=== PATIENT | male | born 1935 | race Caucasian/White ===

== ENCOUNTER → 2017-08-30 09:58 | Outpatient (CLI) | payer MEDICARE ==
[2016-05-23 11:58] VITALS: BMI 28.9
[~2017-08-30 09:58] MED LIST: FLOMAX0.4 MG PO; FLUTICASONE PRO16 GM NASAL; LEVOXYL100 MCG PO; NITROSTAT0.4 MG SL; PLAVIX75 MG PO; PROSCAR5 MG PO; SYMBICORT 16010.2 GM INH; VENTOLIN HFA18 GM INH
[2017-08-30 10:38] LABS: EOSINOPHILS 5.8 % (0-7); HEMATOCRIT 35.3 % (42.0-54.0); HEMOGLOBIN 11.5 g/dL (13.5-17.5); IMMATURE GRANULOCYTES 0.2 % (0-5); LYMPHOCYTES 29.5 % (15-50); MCH 27.8 pg (26.0-34.0); MCHC 32.6 g/dL (31.0-37.0); MCV 85.3 fL (80.0-100.0); MEAN PLATELET VOLUME 9.3 fL (7.4-10.4); NEUTROPHILS 54.5 % (40-80); PLATELET COUNT 292 10x3/uL (130-400); RBC 4.14 10x6/uL (4.20-6.10); RDW 12.3 % (11.5-14.5)
[2017-08-30 10:58] LABS: ALBUMIN 3.7 g/dL (3.4-5.0); ALKALINE PHOSPHATASE 78 U/L (46-116); ALT (SGPT) 20 U/L (10-68); BILIRUBIN - DIRECT 0.09 mg/dL (0.00-0.30); BILIRUBIN - INDIRECT 0.31 mg/dL (0.00-1.00); CALC OSMOLALITY 276 mosm/kg (275-300); CALCIUM 8.8 mg/dL (8.5-10.1); CARBON DIOXIDE 27.6 mmol/L (21.0-32.0); CHLORIDE - SERUM 103 mmol/L (98-107); GLUCOSE 104 mg/dL (74-106); PROTEIN - SERUM 7.2 g/dL (6.4-8.2); SODIUM 139 mmol/L (136-145); UREA NITROGEN 9 mg/dL (7-18); eGFR NON AFRICAN AMERICAN 76 mL/min (90-120)
[2017-08-30 11:03] LABS: INR 0.98 (0.85-1.17); PROTIME 12.6 SECONDS (11.6-15.0)
== END | disposition home or self-care (01) ==
LOC: D.LAB 09:58 → D.CT 11:00
PROVIDERS: Surgery
DX: C18.9 Malignant neoplasm of colon, unspecified (principal); I20.8 Other forms of angina pectoris

== ENCOUNTER 2017-09-11 08:00 | Inpatient (IN) | payer MEDICARE ==
[2017-09-11] VITALS (12 sets, daily range): BP systolic 116–181; BP diastolic 47–81; BMI 28.0; BMI 27.8
[~2017-09-11] VITALS: Ht 177.8 cm; Wt 88.0 kg
--- NOTE | ~2017-09-11 | OP ---
PATIENT NAME: CRISELDA BECERRA MEDICAL RECORD: [id number] :34 LOCATION:D[id number] ADMISSION DATE:09/11/17 SURGEON: LIZZIE MATUTE MD DATE OF OPERATION: 09/11/2017 SURGEON: Lizzie Matute MD PREOPERATIVE DIAGNOSES: 1. Colon cancer. 2. Chronic obstructive pulmonary disease. 3. Typical angina. POSTOPERATIVE DIAGNOSES: 1. Colon cancer. 2. Chronic obstructive pulmonary disease. 3. Typical angina. PROCEDURE PERFORMED: 1. Laparoscopic mobilization of splenic flexure. 2. Laparoscopic extended left hemicolectomy. ANESTHESIA: General. COMPLICATIONS: None. SPECIMENS: Left colon. Case was contaminated. ESTIMATED BLOOD LOSS: 200 cc. OPERATIVE COURSE: After consent was obtained, the patient was taken to the operating room and placed in the supine position on the operating table. Next, general anesthesia was given via endotracheal intubation after a timeout was taken to confirm the correct patient and procedure. Abdomen was prepped and draped in typical sterile fashion. Local anesthetic was injected just above the umbilicus. A stab incision was made with 11-blade scalpel. Using a 5-mm bladeless optical trocar, the abdomen was entered under direct laparoscopic vision. Adequate pneumoperitoneum was achieved. The abdominal cavity was inspected. No evidence of bowel injury. No evidence of bleeding. At this time, all remaining trocars were placed, a 5-mm trocar in the left lower quadrant, two 5-mm trocar into the right lateral quadrant. The abdominal cavity was inspected. The colon was inspected. The area of tattooing was identified in the left upper quadrant at the distal transverse colon, at the splenic flexure. At this time, I decided to extended left hemicolectomy. The 5-mm midline port was removed. The skin incision was made. The skin incised with 15 blade scalpel. Dissection to the level of the fascia using electrocautery. The fascia was opened with electrocautery. Peritoneum was opened using electrocautery. The Nathaniel retractor was placed. The Gelport was placed. Pneumoperitoneum was re-achieved. At this time, the descending colon was mobilized off the pelvic side wall. The white line of Toldt was taken using the Harmonic scalpel. The splenic flexure was mobilized using the Harmonic scalpel. Next, the mid transverse colon was identified. The omentum was dissected off the transverse colon and retracted cephalad. The lesser sac was entered. The remaining portion of the splenic flexure was then mobilized from medial to OPERATIVE REPORT [id number] CRISELDA BECERRA O lateral until the splenic flexure was completely mobilized. The left branch of the middle colic vessels was identified. It was dissected using the Harmonic scalpel. The left branch of the middle colic vessels were then divided using the linear cutting GI stapler with a white load stapler. The mesentery was taken using the Harmonic scalpel. There was significant disease within the gastrocolic ligament. To get full circumferential dissection of the colon the stapler was fired across the greater curvature of the stomach using a ELIZABETH stapler. At this time, the Nathaniel retractor was removed. The colon was extracorporealized. The remaining portion of the mesentery was taken with Harmonic scalpel. The descending colon was transected using ELIZABETH stapler. At this time, the specimen was passed off the field and sent for permanent pathology. A dasl-ut-uiqb colocolonic anastomosis was created using the ELIZABETH stapler. The staple line was imbricated using 3-0 Vicryl suture. The abdomen was copiously irrigated and suctioned. The small bowel was run from the ligament of Treitz to the cecum. No evidence of small bowel injury. An NG tube was placed and it was palpated for positioning. A VICKY drain was placed into the abdomen and placed along the left pericolic gutter and splenic flexure. Secured the skin using 2-0 nylon suture. The abdominal cavity was copiously irrigated and suctioned. Nathaniel retractor was removed. The fascia was closed with 0 looped PDS. Skin was closed with nithin. At the end of the case, all needle and instrument counts were correct. No complications occurred. The patient extubated and transferred to the PACU in stable condition. TRANSINT:[id number] Voice Confirmation ID: [id number] DOCUMENT ID: [id number] LIZZIE MATUTE MD at 0910 CC: [id number] DICTATION DATE: 09/11/17 1621 ROLL MACHINE OPERATOR: 09/11/172219 ADM IN [id number] [place] [address]
[~2017-09-11 08:00] MED LIST changes: +PROTONIX40 MG PO
[2017-09-11 08:54] LABS: BASOPHILS 1.1 % (0-2); EOSINOPHILS 3.7 % (0-7); HEMATOCRIT 36.3 % (42.0-54.0); HEMOGLOBIN 11.8 g/dL (13.5-17.5); IMMATURE GRANULOCYTES 0.2 % (0-5); LYMPHOCYTES 18.7 % (15-50); MCH 27.4 pg (26.0-34.0); MCHC 32.5 g/dL (31.0-37.0); MCV 84.2 fL (80.0-100.0); MEAN PLATELET VOLUME 9.2 fL (7.4-10.4); MONOCYTES 12.2 % (2-11); NEUTROPHILS 64.1 % (40-80); PLATELET COUNT 299 10x3/uL (130-400); RBC 4.31 10x6/uL (4.20-6.10); RDW 12.3 % (11.5-14.5); WBC 5.4 10x3/uL (4.8-10.8)
[2017-09-11 09:04] LABS: APTT 30.3 SECONDS (22.8-39.4); INR 0.97 (0.85-1.17); PROTIME 12.5 SECONDS (11.6-15.0)
[2017-09-11 09:16] LABS: CALC OSMOLALITY 274 mosm/kg (275-300); CARBON DIOXIDE 25.7 mmol/L (21.0-32.0); CHLORIDE - SERUM 102 mmol/L (98-107); CREATININE - SERUM 0.9 mg/dL (0.6-1.3); GLUCOSE 108 mg/dL (74-106); POTASSIUM - SERUM 4.2 mmol/L (3.5-5.1); SODIUM 138 mmol/L (136-145); UREA NITROGEN 7 mg/dL (7-18); eGFR NON AFRICAN AMERICAN 86 mL/min (90-120)
[2017-09-12 04:00] VITALS: BP 134/57
[2017-09-12 05:19] LABS: BASOPHILS 0.1 % (0-2); EOSINOPHILS 0 % (0-7); IMMATURE GRANULOCYTES 0.3 % (0-5); LYMPHOCYTES 4.9 % (15-50); MCH 27.1 pg (26.0-34.0); MCHC 31.9 g/dL (31.0-37.0); MCV 84.8 fL (80.0-100.0); MEAN PLATELET VOLUME 9.2 fL (7.4-10.4); MONOCYTES 10.3 % (2-11); NEUTROPHILS 84.4 % (40-80); PLATELET COUNT 284 10x3/uL (130-400); RDW 12.7 % (11.5-14.5)
[2017-09-12 05:44] LABS: HEMATOCRIT 28.5 % (42.0-54.0); HEMOGLOBIN 9.1 g/dL (13.5-17.5); RBC 3.36 10x6/uL (4.20-6.10); WBC 13.9 10x3/uL (4.8-10.8)
[2017-09-12 05:51] LABS: ALBUMIN 2.5 g/dL (3.4-5.0); ANION GAP 13.6 mmol/L (8-16); BILIRUBIN - TOTAL 0.4 mg/dL (0.2-1.3); CALCIUM 7.7 mg/dL (8.5-10.1); CARBON DIOXIDE 23.4 mmol/L (21.0-32.0); CREATININE - SERUM 1.1 mg/dL (0.6-1.3); PROTEIN - SERUM 5.3 g/dL (6.4-8.2)
[2017-09-12 08:56] VITALS: BP 119/49
[2017-09-12 10:58] VITALS: Ht 177.8 cm; Wt 88.0 kg
[2017-09-12 12:46] VITALS: BP 132/52
[2017-09-12 16:12] VITALS: BP 122/49
[2017-09-13 02:05] VITALS: BP 133/56
[2017-09-13 04:00] VITALS: BP 135/63
[2017-09-13 08:28] VITALS: BP 143/61
[2017-09-13 08:33] LABS: BASOPHILS 0.2 % (0-2); EOSINOPHILS 0.3 % (0-7); HEMATOCRIT 25.4 % (42.0-54.0); HEMOGLOBIN 8.1 g/dL (13.5-17.5); IMMATURE GRANULOCYTES 0.1 % (0-5); LYMPHOCYTES 9.2 % (15-50); MCH 27.2 pg (26.0-34.0); MCHC 31.9 g/dL (31.0-37.0); MCV 85.2 fL (80.0-100.0); MEAN PLATELET VOLUME 9.2 fL (7.4-10.4); MONOCYTES 9.6 % (2-11); NEUTROPHILS 80.6 % (40-80); PLATELET COUNT 219 10x3/uL (130-400); RBC 2.98 10x6/uL (4.20-6.10)
[2017-09-13 08:39] LABS: CALC OSMOLALITY 272 mosm/kg (275-300); CALCIUM 8.2 mg/dL (8.5-10.1); CARBON DIOXIDE 24.2 mmol/L (21.0-32.0); CHLORIDE - SERUM 106 mmol/L (98-107); GLUCOSE 102 mg/dL (74-106); POTASSIUM - SERUM 3.9 mmol/L (3.5-5.1); SODIUM 137 mmol/L (136-145); UREA NITROGEN 10 mg/dL (7-18)
[2017-09-13 08:41] LABS: CREATININE - SERUM 0.8 mg/dL (0.6-1.3); eGFR NON AFRICAN AMERICAN > 90 mL/min (90-120)
[2017-09-13 12:39] VITALS: BP 154/66
[2017-09-13 15:49] VITALS: BP 149/64
[2017-09-13 20:00] VITALS: BP 136/76
[2017-09-14 04:00] VITALS: BP 155/68
[2017-09-14 04:46] LABS: BASOPHILS 0.4 % (0-2); EOSINOPHILS 2.1 % (0-7); HEMATOCRIT 25.9 % (42.0-54.0); HEMOGLOBIN 8.3 g/dL (13.5-17.5); IMMATURE GRANULOCYTES 0.4 % (0-5); LYMPHOCYTES 9.4 % (15-50); MCH 27.1 pg (26.0-34.0); MCV 84.6 fL (80.0-100.0); MEAN PLATELET VOLUME 9.4 fL (7.4-10.4); MONOCYTES 9.2 % (2-11); NEUTROPHILS 78.5 % (40-80); PLATELET COUNT 236 10x3/uL (130-400); RBC 3.06 10x6/uL (4.20-6.10); WBC 8.2 10x3/uL (4.8-10.8)
[2017-09-14 05:05] LABS: CALC OSMOLALITY 273 mosm/kg (275-300); CALCIUM 7.9 mg/dL (8.5-10.1); CARBON DIOXIDE 23.5 mmol/L (21.0-32.0); CHLORIDE - SERUM 106 mmol/L (98-107); CREATININE - SERUM 0.8 mg/dL (0.6-1.3); GLUCOSE 85 mg/dL (74-106); POTASSIUM - SERUM 3.7 mmol/L (3.5-5.1); SODIUM 138 mmol/L (136-145); UREA NITROGEN 9 mg/dL (7-18); eGFR NON AFRICAN AMERICAN > 90 mL/min (90-120)
[2017-09-14 08:12] VITALS: BP 157/67
[2017-09-14 12:24] VITALS: BP 157/71
[2017-09-14 15:57] VITALS: BP 143/75
[2017-09-14 20:00] VITALS: BP 153/76
[2017-09-15] VITALS: BP 149/78
[2017-09-15 04:00] VITALS: BP 148/76
[2017-09-15 05:00] LABS: BASOPHILS 0.2 % (0-2); EOSINOPHILS 2.1 % (0-7); HEMATOCRIT 27.4 % (42.0-54.0); HEMOGLOBIN 8.7 g/dL (13.5-17.5); IMMATURE GRANULOCYTES 0.2 % (0-5); MCH 26.7 pg (26.0-34.0); MCHC 31.8 g/dL (31.0-37.0); MEAN PLATELET VOLUME 9.1 fL (7.4-10.4); NEUTROPHILS 75.5 % (40-80); PLATELET COUNT 264 10x3/uL (130-400); RBC 3.26 10x6/uL (4.20-6.10); RDW 12.8 % (11.5-14.5); WBC 8.1 10x3/uL (4.8-10.8)
[2017-09-15 05:20] LABS: CALC OSMOLALITY 281 mosm/kg (275-300); CALCIUM 7.9 mg/dL (8.5-10.1); CARBON DIOXIDE 22.2 mmol/L (21.0-32.0); CHLORIDE - SERUM 107 mmol/L (98-107); CREATININE - SERUM 0.8 mg/dL (0.6-1.3); GLUCOSE 95 mg/dL (74-106); MAGNESIUM - SERUM 1.8 mg/dL (1.8-2.4); POTASSIUM - SERUM 3.6 mmol/L (3.5-5.1); SODIUM 142 mmol/L (136-145); UREA NITROGEN 11 mg/dL (7-18); eGFR NON AFRICAN AMERICAN > 90 mL/min (90-120)
[2017-09-15 09:33] VITALS: BP 148/79
[2017-09-15 13:28] VITALS: BP 163/81
[2017-09-15 18:40] VITALS: BP 149/77
[2017-09-15 20:00] VITALS: BP 170/83
[2017-09-16] VITALS: BP 151/76
[2017-09-16 04:00] VITALS: BP 173/78
[2017-09-16 06:29] LABS: BASOPHILS 0.1 % (0-2); EOSINOPHILS 0 % (0-7); HEMATOCRIT 28.3 % (42.0-54.0); HEMOGLOBIN 9.3 g/dL (13.5-17.5); IMMATURE GRANULOCYTES 0.3 % (0-5); LYMPHOCYTES 2.3 % (15-50); MCH 27.3 pg (26.0-34.0); MCHC 32.9 g/dL (31.0-37.0); MEAN PLATELET VOLUME 9.4 fL (7.4-10.4); MONOCYTES 5.6 % (2-11); NEUTROPHILS 91.7 % (40-80); PLATELET COUNT 291 10x3/uL (130-400); RBC 3.41 10x6/uL (4.20-6.10); RDW 12.6 % (11.5-14.5); WBC 15.7 10x3/uL (4.8-10.8)
[2017-09-16 06:43] LABS: CALC OSMOLALITY 284 mosm/kg (275-300); CALCIUM 8.1 mg/dL (8.5-10.1); CARBON DIOXIDE 24.4 mmol/L (21.0-32.0); CHLORIDE - SERUM 106 mmol/L (98-107); CREATININE - SERUM 0.9 mg/dL (0.6-1.3); MAGNESIUM - SERUM 1.9 mg/dL (1.8-2.4); POTASSIUM - SERUM 3.7 mmol/L (3.5-5.1); SODIUM 141 mmol/L (136-145); UREA NITROGEN 13 mg/dL (7-18); eGFR NON AFRICAN AMERICAN 86 mL/min (90-120)
[2017-09-16 06:44] LABS: GLUCOSE 171 mg/dL (74-106)
[2017-09-16 08:10] VITALS: BP 155/73
[2017-09-16 11:31] VITALS: BP 150/81
[2017-09-16 15:29] VITALS: BP 152/80
[2017-09-16 20:00] VITALS: BP 140/66
[2017-09-17] VITALS: BP 138/66
[2017-09-17 04:00] VITALS: BP 111/64; BP 139/68
[2017-09-17 08:48] LABS: BASOPHILS 0.5 % (0-2); EOSINOPHILS 3.1 % (0-7); HEMATOCRIT 25.3 % (42.0-54.0); IMMATURE GRANULOCYTES 0.9 % (0-5); LYMPHOCYTES 11.1 % (15-50); MCH 26.6 pg (26.0-34.0); MCHC 31.6 g/dL (31.0-37.0); MCV 84.1 fL (80.0-100.0); MEAN PLATELET VOLUME 9.1 fL (7.4-10.4); MONOCYTES 9.9 % (2-11); NEUTROPHILS 74.5 % (40-80); PLATELET COUNT 266 10x3/uL (130-400); RBC 3.01 10x6/uL (4.20-6.10); RDW 12.9 % (11.5-14.5); WBC 8.2 10x3/uL (4.8-10.8)
[2017-09-17 08:57] LABS: CALC OSMOLALITY 288 mosm/kg (275-300); CALCIUM 8.1 mg/dL (8.5-10.1); CARBON DIOXIDE 26.8 mmol/L (21.0-32.0); CHLORIDE - SERUM 110 mmol/L (98-107); POTASSIUM - SERUM 3.2 mmol/L (3.5-5.1); SODIUM 144 mmol/L (136-145); UREA NITROGEN 15 mg/dL (7-18); eGFR NON AFRICAN AMERICAN 76 mL/min (90-120)
[2017-09-17 09:00] LABS: GLUCOSE 113 mg/dL (74-106)
[2017-09-17 09:10] VITALS: BP 136/64
[2017-09-17 20:00] VITALS: BP 146/57
[2017-09-18 04:00] VITALS: BP 152/60
[2017-09-18 04:34] LABS: BASOPHILS 0.3 % (0-2); EOSINOPHILS 3.5 % (0-7); HEMATOCRIT 24.6 % (42.0-54.0); HEMOGLOBIN 7.8 g/dL (13.5-17.5); IMMATURE GRANULOCYTES 0.9 % (0-5); MCH 26.6 pg (26.0-34.0); MCHC 31.7 g/dL (31.0-37.0); MEAN PLATELET VOLUME 9.5 fL (7.4-10.4); MONOCYTES 10.3 % (2-11); PLATELET COUNT 283 10x3/uL (130-400); RBC 2.93 10x6/uL (4.20-6.10); RDW 12.9 % (11.5-14.5); WBC 6.8 10x3/uL (4.8-10.8)
[2017-09-18 05:00] LABS: CALC OSMOLALITY 292 mosm/kg (275-300); CALCIUM 7.8 mg/dL (8.5-10.1); CARBON DIOXIDE 26.1 mmol/L (21.0-32.0); CHLORIDE - SERUM 111 mmol/L (98-107); GLUCOSE 116 mg/dL (74-106); MAGNESIUM - SERUM 1.9 mg/dL (1.8-2.4); SODIUM 146 mmol/L (136-145); UREA NITROGEN 14 mg/dL (7-18); eGFR NON AFRICAN AMERICAN 76 mL/min (90-120)
[2017-09-18 05:15] LABS: POTASSIUM - SERUM 2.9 mmol/L (3.5-5.1)
[2017-09-18 08:04] VITALS: BP 144/64
[2017-09-18 12:02] VITALS: BP 123/69
[2017-09-18] MEDS ORDERED: HYDROCODON-ACE1 EAC7 PO ×2 (12:18→17:24)
== END 2017-09-18 15:15 | disposition home or self-care (01) | DRG 331 ==
LOC: D.MS 08:06 → D.SDCHOLD 08:06 → D.MS 17:01
PROVIDERS: Anesthesiology; Surgery
PROC: 0DNL0ZZ Release Transverse Colon, Open Approach (ICD-10-PCS; 2017-09-11)
PROC: 0DTG0ZZ Resection of Left Large Intestine, Open Approach (ICD-10-PCS; principal; 2017-09-11 11:00)
DX: C18.6 Malignant neoplasm of descending colon (principal); J44.9 Chronic obstructive pulmonary disease, unspecified; I20.9 Angina pectoris, unspecified

== ENCOUNTER → 2018-07-02 07:17 | Outpatient (CLI) | payer MEDICARE ==
[2017-09-12 10:58] VITALS: BMI 27.8
[~2018-07-02 07:17] MED LIST changes: +HYDROCODON-ACE1 EAC7 PO
[2018-07-02 08:05] LABS: ALBUMIN 3.6 g/dL (3.4-5.0); ALKALINE PHOSPHATASE 75 U/L (46-116); ALT (SGPT) 16 U/L (10-68); BILIRUBIN - DIRECT 0.16 mg/dL (0.00-0.30); BILIRUBIN - INDIRECT 0.33 mg/dL (0.00-1.00); BILIRUBIN - TOTAL 0.49 mg/dL (0.2-1.3); CALC OSMOLALITY 274 mosm/kg (275-300); CALCIUM 8.6 mg/dL (8.5-10.1); CARBON DIOXIDE 27.8 mmol/L (21.0-32.0); CHLORIDE - SERUM 101 mmol/L (98-107); GLUCOSE 106 mg/dL (74-106); POTASSIUM - SERUM 4.3 mmol/L (3.5-5.1); PROTEIN - SERUM 7.6 g/dL (6.4-8.2); SODIUM 137 mmol/L (136-145); UREA NITROGEN 15 mg/dL (7-18); eGFR NON AFRICAN AMERICAN 76 mL/min (90-120)
== END | disposition home or self-care (01) ==
LOC: D.CT 07:17
PROVIDERS: Surgery
DX: C18.9 Malignant neoplasm of colon, unspecified (principal)

== ENCOUNTER 2018-09-11 08:31 | Day surgery (SDC) | payer OTHER ==
[~2018-09-11] VITALS: Ht 177.8 cm; Wt 83.9 kg
[2018-09-11 09:25] LABS: BASOPHILS 1.5 % (0-2); EOSINOPHILS 5.2 % (0-7); HEMATOCRIT 38.6 % (42.0-54.0); IMMATURE GRANULOCYTES 0.2 % (0-5); LYMPHOCYTES 26.6 % (15-50); MCH 29.1 pg (26.0-34.0); MCHC 33.7 g/dL (31.0-37.0); MCV 86.5 fL (80.0-100.0); MEAN PLATELET VOLUME 9.6 fL (7.4-10.4); MONOCYTES 10.7 % (2-11); NEUTROPHILS 55.8 % (40-80); PLATELET COUNT 245 10x3/uL (130-400); RBC 4.46 10x6/uL (4.20-6.10); RDW 13.2 % (11.5-14.5); WBC 4.8 10x3/uL (4.8-10.8)
[2018-09-11 09:34] LABS: CALC OSMOLALITY 275 mosm/kg (275-300); CALCIUM 8.7 mg/dL (8.5-10.1); CARBON DIOXIDE 25.2 mmol/L (21.0-32.0); CHLORIDE - SERUM 102 mmol/L (98-107); GLUCOSE 109 mg/dL (74-106); POTASSIUM - SERUM 4.3 mmol/L (3.5-5.1); SODIUM 138 mmol/L (136-145); UREA NITROGEN 10 mg/dL (7-18); eGFR NON AFRICAN AMERICAN 76 mL/min (90-120)
[2018-09-11 11:27] VITALS: BP 171/82; Ht 177.8 cm; Wt 83.9 kg
--- NOTE | 2018-09-12 08:26 | OP ---
PATIENT NAME: CRISELDA BECERRA MEDICAL RECORD: [id number] :34 LOCATION:D.[facility] ADMISSION DATE: SURGEON: OSMAR TOLENTINO MD DATE OF OPERATION: 09/11/2018 SURGEON: Osmar Tolentino MD ANESTHESIA: TIVA by Porfirio Murphy CRNA DIAGNOSIS: Obstructive BPH with incomplete bladder emptying. PSA was 2.1 on 11/30/2017. IPSS is 26 and quality of life score is 3. ARLEY shows a 60-gram prostate. Postvoid residual is 170 mL. PROCEDURE: Cystoscopy with UroLift implants times 4. FINDINGS: Obstructive bilateral lateral lobes. Small median lobe, which is nonobstructive. Single ureteral orifice bilaterally. No bladder tumors. Heavily trabeculated bladder with diverticula and cellules. 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 CLINICAL HISTORY: This is an 82-year-old male who has obstructive BPH symptoms. He has been on tamsulosin and finasteride for the past 9-10 years. His PSA was 2.1 on 11/30/2017. He has quite significant voiding symptoms including nocturia every 1-1/2 to 2 hours. This means that he has nocturia times 4-5. In the daytime, he voids every 2-1/2 to 3 hours. He has no urgency. There is hesitancy in getting started and the stream is weak. He has postvoid dribbling. He feels that he is not fully emptying his bladder. He is not getting any urinary tract infections. He does have side effects from the tamsulosin also including episodes of lightheadedness and reduced ejaculatory volume. His IPSS score was 26 and quality of life score was 3. We checked his postvoid residual preoperatively and it was 170 mL. He comes today to have cystoscopy and UroLift implantation to relieve the prostatic obstruction. He is not allergic to any medications. He was given Ancef on-call to the OR. DESCRIPTION OF PROCEDURE: The patient was given IV sedation. He was then placed into dorsal lithotomy position. He was prepped and draped. Cystoscopy was performed, giving the findings outlined above. We then placed the UroLift implants. The bladder neck region implants were placed about 1.5 to 2 cm distal to the bladder neck in the anterolateral urethra. Then, we placed another 2 implants, one on each side, in the level of the verumontanum. There was very vascular mucosal membrane and this caused some bleeding with the implantation. However, the cystoscopy showed a nice wide open channel all the way through the prostatic urethra. The bladder was then emptied through the cystoscope sheath and then the scope was removed. The patient's foreskin had to be pulled back in order to clean under the foreskin while he was being prepped. At the end of the procedure, we pulled the foreskin forward again to cover the glans penis. There is a tight constriction band on the foreskin from phimosis. I will see the patient in follow up in one month's time to check on his voiding symptom then. TRANSINT:[id number] Voice Confirmation ID: [id number] DOCUMENT ID: [id number] OPERATIVE REPORT [id number] CRISELDA BECERRA, OSMAR Melendez MD at 0826 CC: [id number] DICTATION DATE: 09/11/18 1405 TAKER OFF BRAKER MACHINE: 09/11/18 1546 [facility] 09/11/18 [facility] [address] [place] [address]
== END 2018-09-11 15:00 | disposition home or self-care (01) ==
LOC: D.OPS 08:31 → D.PAN 11:40 → D.OPS 11:40
PROVIDERS: Anesthesiology
DX: N40.1 Benign prostatic hyperplasia with lower urinary tract symptoms (principal); N13.8 Other obstructive and reflux uropathy; R39.14 Feeling of incomplete bladder emptying

== ENCOUNTER 2018-09-29 03:59 | Emergency (ER) | payer OTHER ==
[~2018-09-29] VITALS: Ht 177.8 cm; Wt 84.1 kg
[2018-09-29 04:00] VITALS: Ht 177.8 cm; Wt 84.1 kg
[2018-09-29 04:29] LABS: EOSINOPHILS 3.2 % (0-7); LYMPHOCYTES 17.6 % (15-50); MCH 29.2 pg (26.0-34.0); MCHC 33.3 g/dL (31.0-37.0); MCV 87.6 fL (80.0-100.0); MEAN PLATELET VOLUME 8.9 fL (7.4-10.4); MONOCYTES 7.1 % (2-11); NEUTROPHILS 70.1 % (40-80); RBC 4.11 10x6/uL (4.20-6.10); RDW 13.7 % (11.5-14.5); WBC 5.9 10x3/uL (4.8-10.8)
[2018-09-29 04:33] LABS: APPEARANCE CLEAR (CLEAR); BILIRUBIN NEGATIVE (NEGATIVE); COLOR YELLOW (YELLOW); GLUCOSE NEGATIVE (NEGATIVE); KETONE NEGATIVE (NEGATIVE); NITRITE NEGATIVE (NEGATIVE); PROTEIN NEGATIVE (NEGATIVE); UROBILINOGEN NORMAL (NORMAL)
[2018-09-29 04:35] LABS: PLATELET COUNT 349 10x3/uL (130-400)
[2018-09-29 04:37] LABS: UDS - AMPHET NEGATIVE QUAL (NEGATIVE); UDS - BARB NEGATIVE QUAL (NEGATIVE); UDS - BENZO NEGATIVE QUAL (NEGATIVE); UDS - COCAINE NEGATIVE QUAL (NEGATIVE); UDS - OPIATE NEGATIVE QUAL (NEGATIVE); UDS - PCP NEGATIVE QUAL (NEGATIVE); UDS - THC NEGATIVE QUAL (NEGATIVE)
[2018-09-29 04:40] LABS: INR 1.03 (0.85-1.17)
[2018-09-29 04:41] LABS: APTT 31.2 SECONDS (22.8-39.4)
[2018-09-29 04:50] LABS: ALBUMIN 3.7 g/dL (3.4-5.0); ALKALINE PHOSPHATASE 83 U/L (46-116); ALT (SGPT) 19 U/L (10-68); BILIRUBIN - TOTAL 0.42 mg/dL (0.2-1.3); CALC OSMOLALITY 275 mosm/kg (275-300); CALCIUM 8.5 mg/dL (8.5-10.1); CHLORIDE - SERUM 101 mmol/L (98-107); GLUCOSE 144 mg/dL (74-106); POTASSIUM - SERUM 4.1 mmol/L (3.5-5.1); PROTEIN - SERUM 7.2 g/dL (6.4-8.2); SODIUM 137 mmol/L (136-145); UREA NITROGEN 10 mg/dL (7-18); eGFR NON AFRICAN AMERICAN 76 mL/min (90-120)
[2018-09-29 05:07] LABS: CKMB 1.4 U/L (0.0-3.6); CREATINE KINASE 100 UL (21-232); MAGNESIUM - SERUM 2.1 mg/dL (1.8-2.4); TROPONIN-I < 0.017 ng/mL (0.000-0.060)
[2018-09-29 06:45] VITALS: BP 145/75
== END 2018-09-29 06:45 | disposition home or self-care (01) ==
LOC: D.ER 03:59
PROVIDERS: Family Medicine
DX: R56.9 Unspecified convulsions (principal); F51.5 Nightmare disorder; G47.30 Sleep apnea, unspecified; K21.9 Gastro-esophageal reflux disease without esophagitis; N40.0 Benign prostatic hyperplasia without lower urinary tract symptoms; Z85.038 Personal history of other malignant neoplasm of large intestine

== ENCOUNTER → 2019-07-25 17:38 | Outpatient (CLI) | payer OTHER ==
[2018-09-29 04:00] VITALS: BMI 26.6
== END | disposition home or self-care (01) ==
LOC: D.LABREF 17:38
PROVIDERS: ATTEND Surgery
DX: L72.0 Epidermal cyst (principal); C44.91 Basal cell carcinoma of skin, unspecified